=== PATIENT | male | born 1980 | race Hispanic/Latino ===

== ENCOUNTER 2017-12-18 22:43 | Emergency (ER) | payer MEDICAID ==
[2017-12-18] MEDS ORDERED: FLUORESCEIN SODIUM 0.6 MG STRIP ONE (22:55)
[2017-12-18] MEDS ORDERED: NA BORATE/BORIC AC/H2O/NACL 120 ML OPHTH IRRIG SOLN ONE (22:55)
[2017-12-18] MEDS ORDERED: TETRACAINE HCL 0.5% 4 ML OPHTH SOLN ONE (22:55)
[2017-12-18] MEDS ORDERED: ERYTHROMYCIN BASE 0.5% OPHTH OINT 1 GM TUBE ONE (23:18)
[2017-12-18] MEDS ORDERED: TETANUS/DIPHTHERIA TOXOID [ADULT] 0.5 ML VIAL IM ONE (23:18)
[2017-12-18] MEDS ORDERED: IBUPROFEN 600 MG TABLET ONE (23:18)
== END 2017-12-18 23:34 | disposition home or self-care (01) ==
LOC: EDH 22:43
DX: S05.01XA Injury of conjunctiva and corneal abrasion without foreign body, right eye, initial encounter (principal); Z72.0 Tobacco use; W40.8XXA Explosion of other specified explosive materials, initial encounter; Y93.G9 Activity, other involving cooking and grilling; Y92.511 Restaurant or cafe as the place of occurrence of the external cause; Y99.8 Other external cause status
CPT/HCPCS: 90471; 90714